=== PATIENT | female | born 1970 | race Caucasian/White ===

== ENCOUNTER 2017-07-11 21:47 | Emergency (ER) | payer BC ==
[~2017-07-11] VITALS: Ht 160 cm; Wt 109.0 kg
[2017-07-11 22:42] VITALS: BP 137/89
== END 2017-07-11 22:45 | disposition home or self-care (01) ==
LOC: EMS 21:48
DX: H60.91 Unspecified otitis externa, right ear (principal); I10 Essential (primary) hypertension
CPT/HCPCS: 99283